=== PATIENT | female | born 1975 ===

== ENCOUNTER → 2024-07-11 | Outpatient (CLI) | payer OTHER | LOC: LAB SHORT 07:38 → PLD 07:38 | DX: R21 Rash and other nonspecific skin eruption (principal) | CPT/HCPCS: 88312 ==

== ENCOUNTER → 2025-03-30 | Outpatient (CLI) | payer OTHER | LOC: LAB 14:00 → LAB SHORT 14:00 | DX: R21 Rash and other nonspecific skin eruption (principal) | CPT/HCPCS: 88312 ==

== ENCOUNTER → 2025-07-03 | Outpatient (CLI) | payer OTHER | LOC: LAB SHORT 15:08 → LAB 15:08 | DX: R21 Rash and other nonspecific skin eruption (principal) | CPT/HCPCS: 88312 ==